=== PATIENT | female | born 1980 | race Caucasian/White ===

== ENCOUNTER 2016-10-12 18:21 | Emergency (ER) | payer BC ==
[2016-10-12 18:36] VITALS: BP 134/97; PULSE 80; RESP 16; TEMP 98.4; O2SAT 99
--- NOTE | 2016-10-12 19:03 | UCPHY ---
H & P Time Seen by Provider: 10/12/16 18:50 Patient Type: Established HPI/ROS: CHIEF COMPLAINT: Sore throat HISTORY OF PRESENT ILLNESS: 36-year-old female with primary complaint of sore throat for the last 4 days. Mild nasal congestion and occasional cough, but no sputum production. No fever. No facial pain. No hoarseness. No exudates noted. Became concerned tonight that she might have strep throat. No chest pain or shortness of breath. No palpitations, nausea, vomiting, diarrhea, urinary complaints, lightheadedness, or headache. REVIEW OF SYSTEMS: Aside from elements discussed in the HPI, a comprehensive 10-point review of systems was reviewed and is negative. PAST MEDICAL HISTORY: Tonsillectomy. SOCIAL HISTORY: Nonsmoker. Occasional alcohol. VITAL SIGNS: see nurse's notes. GENERAL: Well-developed, well-nourished, in no acute distress. HEENT: Atraumatic Eyes: PERRL, EOMI, no conjunctival injection. Ears: TM clear bilaterally. Nose: No discharge. Mouth: moist mucous membranes. Pharynx: Mild erythema, no exudates, no swelling, no abscess. Uvula is midline. NECK: Supple, no adenopathy, no meningismus, no tenderness. Negative Kernig's and Brudzinski's. LUNGS: Clear to auscultation bilaterally, no wheezes, rhonchi or rales. CARDIAC: Regular rate and rhythm, no rubs, murmurs or gallops. ABDOMEN: Soft, nontender, bowel sounds normal. BACK: No CVA tenderness. EXTREMITIES: Normal, no edema, FROM. NEURO: Alert and oriented, grossly nonfocal. SKIN: Warm and dry, no rash. PSYCHIATRIC: Normal mentation, no agitation. Smoking Status: Never smoked Constitutional: Initial Vital Signs Temperature (C) 36.9 C 10/12/16 18:34 Heart Rate 80 10/12/16 18:34 Respiratory Rate 16 10/12/16 18:34 Blood Pressure 134/97 H 10/12/16 18:34 O2 Sat (%) 99 10/12/16 18:34 O2 Delivery Mode Room Air Allergies/Adverse Reactions: No Known Allergies Allergy (Verified 08/28/16 07:15) Home Medications: Medication Instructions Recorded Adalimumab [Humira] 40 mg SQ 01/29/15 Control 08/28/16 MDM/Departure - [facility] ED Course/Re-evaluation: Strep screen is negative. Discussed symptomatic care for her pharyngitis. Differential Diagnosis: Differential diagnosis for the patient's sore throat was considered including but not limited to viral pharyngitis, bacterial pharyngitis, tonsillitis, tonsillar abscess, peritonsillar abscess, foreign body, epiglottitis, bacterial tracheitis. - Depart Disposition: Home, Routine, Self-Care Clinical Impression: Pharyngitis Condition: Good Instructions: Pharyngitis (ED) Additional Instructions: Your rapid strep screen is negative. If your strep DNA test returns positive, you will be contacted. For your sore throat, I suggest ibuprofen 400-600 mg every 6-8 hours to help with pain and swelling. Salt water gargles and throat lozengers will also be helpful. If you have nasal congestion, I suggest Flonase which is available over the counter as well as an oral decongestant such as Sudafed. For runny nose, I suggest an antihistamine. Claritin or Nuzhat are nonsedating antihistamines. Please follow up with your primary care physician or return to Urgent Care if you're not improving as expected. Referrals: NONE *PRIMARY CARE P,. [Primary Care Provider] - As per Instructions - PQRS PQRS Measurement: Not applicable
== END 2016-10-12 19:10 | disposition home or self-care (01) ==
LOC: CED 18:21
DX: J02.9 Acute pharyngitis, unspecified (principal)
CPT/HCPCS: 87880-PO; G0463-PO

== ENCOUNTER → 2018-06-12 | Outpatient (CLI) | payer BC | LOC: CIMAGING 10:43 | PROVIDERS: ATTEND Family Medicine | DX: Z12.31 Encounter for screening mammogram for malignant neoplasm of breast (principal) ==

== ENCOUNTER → 2018-10-02 | Outpatient (CLI) | payer BC | LOC: BMCIMAGING 12:41 | PROVIDERS: ATTEND Family Medicine | DX: S99.922A Unspecified injury of left foot, initial encounter (principal) ==